=== PATIENT | female | born 1990 ===

== ENCOUNTER 2020-05-25 19:59 | Inpatient (IN) | payer OTHER ==
[2020-05-25] MEDS ORDERED: FAMOTIDINE 20 MG/2 ML INJ IV ONE (21:09)
[2020-05-25] MEDS ORDERED: METOCLOPRAMIDE 10 MG/2 ML INJ IV ONE (21:09)
[2020-05-25] MEDS ORDERED: BICITRA ORAL LIQD 30ML PO ONE (21:09)
[2020-05-25] MEDS ORDERED: LACTATED RINGERS 1,000 ML IV SCH (21:15)
[2020-05-25] MEDS ORDERED: OXYTOCIN DRIP 30 UNITS/500 ML BAG IV SCH (22:00)
[2020-05-25] MEDS ORDERED: diphenhydrAMINE 50 MG/ML VIAL IV PRN (22:31)
[2020-05-25] MEDS ORDERED: HYDROmorphone 1 MG/1 ML INJ IV PRN (22:31)
[2020-05-25] MEDS ORDERED: PROMETHAZINE 25 MG TAB PO PRN (22:31)
[2020-05-25] MEDS ORDERED: PROMETHAZINE 25 MG RECT SUPP PR PRN (22:31)
[2020-05-25] MEDS ORDERED: ONDANSETRON 4 MG/2 ML INJ IV PRN (22:31)
[2020-05-25] MEDS ORDERED: NALOXONE 0.4 MG/1 ML INJ IV PRN (22:31)
[2020-05-25] MEDS ORDERED: NalbUPHINE 10 MG/1 ML INJ IV PRN (22:31)
--- NOTE | 2020-05-25 22:31 | Anesthesia Consultation ---
Anesthesia Consult and Med Hx Date of service: 05/25/20 - Airway Anesthetic Teeth Evaluation: Good ROM Head & Neck: Adequate Mental/Hyoid Distance: Adequate Mallampati Class: Class II Intubation Access Assessment: Probably Good - Pulmonary Exam CTA: Yes - Cardiac Exam Cardiac Exam: RRR - Pre-Operative Health Status ASA Pre-Surgery Classification: ASA2, Emergency Proposed Anesthetic Plan: Spinal - Pulmonary Hx Smoking: No Hx Sleep Apnea: No - Cardiovascular System Hx Hypertension: No Hx Heart Attack/AMI: No Hx Angina: No - Gastrointestinal Hx Gastroesophageal Reflux Disease: No - Endocrine Hx Insulin Dependent Diabetes: No Hx Non-Insulin Dependent Diabetes: No - Other Systems Hx Alcohol Use: No
--- NOTE | 2020-05-25 22:31 | Anesthesia Day of Surgery ---
Anesthesia Day of Surgery - Day of Surgery Patient Examined: Yes Patient H&P Reviewed: Yes Patient is NPO: Yes Beta Blockers: No Cardiac Clearance: No Pulmonary Clearance: No William's Test: N/A
[2020-05-25 22:34] LABS: Basophils % (Auto) 0.2 % (0.0-1.8); Eosinophils % (Auto) 0.2 % (0.0-4.3); Hematocrit 36.4 % (30.3-42.9); Hemoglobin 12.4 gm/dl (10.1-14.3); Lymphocytes # (Auto) 2.4 K/mm3 (1.2-5.4); Lymphocytes % (Auto) 21.1 % (13.4-35.0); Mean Corpuscular HGB Conc 34 % (30-34); Mean Corpuscular Volume 87 fl (79-97); Monocytes # (Auto) 0.6 K/mm3 (0.0-0.8); Monocytes % (Auto) 5.7 % (0.0-7.3); Platelet Count 230 K/mm3 (140-440); Red Blood Count 4.17 M/mm3 (3.65-5.03); Red Cell Distribution Width 14.1 % (13.2-15.2)
--- NOTE | 2020-05-25 22:46 | History and Physical Report ---
History of Present Illness Date of examination: 05/25/20 Date of admission: 05/25/20 21:12 Chief complaint: pt c/o contraction and leakage of fluid this evening History of present illness: at 39.3wks by EDC per pt report and pt has repeat c/section scheduled f or 05/26/20 here at [facility]. Pt c/o leakage of fluid at 19:30 today and also feeling ctx that are painful. pt admits to movement, denies vaginal bleeding and denies headache. at [facility], pt states. Past History Past Surgical History: section (done in [place] and undocumented scar) Family/Genetic History: none Social history: no significant social history - Obstetrical History : 2 Para: 1 Number of Living Children: 1 Medications and Allergies Allergies Allergy/AdvReac Type Severity Reaction Status Date / Time No Known Allergies Allergy Verified 05/25/20 21:13 Active Meds: Active Medications Diphenhydramine HCl (Diphenhydramine 50 Mg/Ml Vial) 12.5 mg IV Q2H PRN PRN Reason: Itching Hydromorphone HCl (Hydromorphone 1 Mg/1 Ml Inj) 0.5 mg IV Q4H PRN PRN Reason: breakthrough pain > 7/10 Lactated Ringer's (Lactated Ringers) 1,000 mls @ 2,250 mls/hr IV PREOP JONO Stop: 05/26/20 21:42 Last Admin: 05/25/20 21:25 Dose: 2,250 mls/hr Documented by: Oxytocin/Sodium Chloride (Pitocin/Ns 30 Unit/500ml) 30 units in 500 mls @ 0 mls/hr IV TITR JONO; Protocol Last Admin: 05/25/20 21:58 Dose: 40 ml/hr, 40 mls/hr Documented by: Nalbuphine HCl (Nalbuphine 10 Mg/1 Ml Inj) 2.5 mg IV Q2H PRN PRN Reason: Itching Naloxone HCl (Naloxone 0.4 Mg/1 Ml Inj) 0.2 mg IV Q2MIN PRN PRN Reason: Res Rate </= 8 or 02 SAT < 92% Ondansetron HCl (Ondansetron 4 Mg/2 Ml Inj) 4 mg IV Q8H PRN PRN Reason: Nausea And Vomiting Promethazine HCl (Promethazine 25 Mg Tab) 25 mg PO Q6H PRN PRN Reason: Nausea And Vomiting Promethazine HCl (Promethazine 25 Mg Rect Supp) 25 mg OK Q6H PRN PRN Reason: Nausea And Vomiting Review of Systems All systems: negative (leakage of fluid) - Vital Signs Vital signs: Vital Signs Pulse Pulse Ox 76 98 05/25/20 20:28 05/25/20 20:28 Temp Pulse Resp BP Pulse Ox 98.5 F 98 H 18 112/67 98 05/25/20 20:29 05/25/20 22:22 05/25/20 20:29 05/25/20 20:29 05/25/20 22:22 - Physical Exam Breasts: Positive: deferred Cardiovascular: Regular rate Abdomen: Positive: other (non-tender gravid) Vagina: Positive: other (grossly ruptured noticed later and indeterminate nitrazine initially per nurse report) Uterus: Positive: enlarged Extremities: Positive: normal - Obstetrical FHR: category 1 Uterine Contraction Monitor Mode: External Cervical Dilatation: 4 (per triage nurse) Cervical Effacement Percentage: 70 station: 0 Uterine Contraction Pattern: Regular Uterine Contraction Intensity: Moderate Results Result Diagrams: 05/25/20 21:25 Abnormal lab results 05/25/20 Range/Units 21:25 WBC 11.3 H (4.5-11.0) K/mm3 Seg Neutrophils % 72.8 H (40.0-70.0) % Seg Neutrophils # 8.2 H (1.8-7.7) K/mm3 All other labs normal. Assessment and Plan at 39.3 with previous undocumented scar, now in labor and SROM, unknown GBS 1. Admit for repeat section 2. Obtain records MATTHEW and office personnel contacted 3. Consents signed 4. NICU and Anesthesia notified carpet sewing machine operator used by nurse for translation.
[2020-05-25] MEDS ORDERED: BUPIVACAINE /DEX-WATER 0.75% (2 ML) AMPULE INFILTRATI ONE (23:07)
[2020-05-25] MEDS ORDERED: PHENYLEPHRINE/NS 1,000 MCG/10 ML SYRINGE (OR USE) IV ONE (23:07)
[2020-05-25] MEDS ORDERED: ONDANSETRON 4 MG/2 ML INJ ONE (23:07)
[2020-05-25] MEDS ORDERED: KETOROLAC 30 MG/1 ML INJ ONE (23:07)
[2020-05-25] MEDS ORDERED: SODIUM CHLORIDE 0.9% IRR 1,500 ML BOTTLE IR ONE (23:23)
[2020-05-25] MEDS ORDERED: WATER FOR IRRIG STERILE 1,500 ML BOTTLE IR ONE (23:23)
[2020-05-26] MEDS ORDERED: SIMETHICONE 80 MG CHEW TAB PO PRN (00:46)
[2020-05-26] MEDS ORDERED: KETOROLAC 30 MG/1 ML INJ IV PRN (00:46)
[2020-05-26] MEDS ORDERED: HYDROcodone/ACETAMINOPHEN 5-325 MG TAB PO PRN (00:46)
[2020-05-26] MEDS ORDERED: NALOXONE 0.4 MG/1 ML INJ IV PRN (00:46)
[2020-05-26] MEDS ORDERED: WITCH HAZEL/ GLYCERIN PAD TP PRN (00:46)
[2020-05-26] MEDS ORDERED: MORPHINE 4 MG/1 ML INJ IV PRN (00:46)
[2020-05-26] MEDS ORDERED: ONDANSETRON 4 MG/2 ML INJ IV PRN (00:46)
[2020-05-26] MEDS ORDERED: LANOLIN/ZINC/DIMETHICONE (LANSINOH) 7 GM TP PRN (00:46)
[2020-05-26] MEDS ORDERED: IBUPROFEN 800 MG TAB PO PRN (00:46)
[2020-05-26] MEDS ORDERED: MAGNESIUM HYDROXIDE (MOM) ORAL LIQD UDC PO PRN (00:46)
--- NOTE | 2020-05-26 00:58 | Procedure Note ---
OB Delivery Note - Delivery Date of Delivery: 05/26/20 Surgeon: GAYLA BAUMANN (Asst Lenora Williamson) Estimated blood loss: other (700cc) - Section Preop diagnosis: repeat , other (undocumented scar and in active labor) Postop diagnosis: same (partial abruption) section procedure: section, repeat low transverse Disposition: floor Complications: none Narrative: Date: 05/26/20 Surgeon: Gayla Baumann MD Preop Dx: Term IUP at 39.3wks, previous section with undocumented scar Postop Dx: same and partial abruption Procedure : Repeat Low transverse section Anesthesia: Spinal Intake: 1400cc crystalloids Output: 300cc clear urine EBL: 700cc After the risks, benefits and alternatives of procedure discussed, patient signed consents and was taken to the operating room. Pt was given spinal anesthesia. After same was adequate, patient was prepped and draped in the usual sterile fashion. Dial catheter in place and draining clear urine. Pt was given prophylactic antibiotic per protocol and time out was done Pfannenstiel skin incision was made and taken sharply to the fascia and the incision extended using electrocautery. Superior edge of the fascia was grasped with may clamps and the rectus muscle using blunt dissection and also using electrocautery. Lower portion of the fascia also sharply. Rectus muscle in the midline and Peritoneal cavity entered bluntly and extended with good visualization of the bladder. The bladder flap was created sharply using metzenbaum scissors. Lower uterine segment then entered transversely and amniotic sac entered using allys clamps. Uterine incision extended using bandage scissors. delivered, bulb suctioned, cord clamped and baby handed to waiting pediatricians. Placenta then delivered completely and uterine cavity cleared of all clots and debri. The uterus was not exteriorized and closed in 2 layers using 0-vicryl suture in a running locked fashion and then an additional layer of imbrication suture. Excellent hemostasis noted. The gutters were cleared of clots and debris and anterior peritoneum closed using 3-0 vicryl suture and rectus muscle reapproximated using [o-vicryl] suture. Rectus fascia closed with [0-vicryl] suture and subcutaneous tissue copiously irrigated with normal saline and re-approximated using 3-0 vicryl suture. Excellent hemostasis remains. The skin was closed with 3-0 monocryl suture and steristrips placed with pressure dressing. Sponge, lap, instrument and needle counts x2 were normal. Patient tolerated the procedure well and was taken to recovery room stable. Findings: Viable male , APGARS 8/9 and weight 3439g. Uterus deviates to right side, normal tubes and ovaries. - Infant A at 1 minute: 8 at 5 minutes: 9 Gender: Male (Baby delivered on 05/25/20 at 23:46; wt 3439g)
[2020-05-26] MEDS ORDERED: OXYTOCIN DRIP 30 UNITS/500 ML BAG IV SCH (01:00)
--- NOTE | 2020-05-26 01:30 | Progress Note ---
Spinal Anesthesia Block - Spinal Anesthesia Block Start Time: 22:50 Stop Time: 23:00 Performed by:: BRE MORRISON Procedure: Spinal anesthesia block is being performed for [C/S]. H&P, labs have been reviewed. Patient's questions and concerns have been answered. Informed consent has been performed. Timeout has was performed. Patient in sitting position on side of bed. Sterile prep and drape was performed. 3 mL 1% lidocaine skin wheal at L [3]-L [4]. Needle introducer advanced. 25-gauge spinal needle advanced, [+] CSF [-] blood. [Marcaine 9mg and Precedex 5mcg] Spinal dose was given. All needles removed. Patient tolerated procedure well.
[2020-05-26] MEDS ORDERED: miSOPROStol 200 MCG TAB PR ONE (01:38)
[2020-05-26] MEDS ORDERED: miSOPROStol 200 MCG TAB ONE (01:40)
--- NOTE | 2020-05-26 10:53 | Post Anesthesia Evaluation ---
- Post Anesthesia Evaluation Patient Participated: Yes Airway Patent: Yes Stable Respiratory Function: Yes Nausea/Vomiting: No Temp > 96.8F: Yes Pain Manageable: Yes Adequeate Hydration: Yes Anesthesia Complications: No Block Receding Appropriately: Yes Patient on Ventilator: No
[2020-05-26] MEDS: oxyCODONE /ACETAMINOPHEN 5-325MG TAB PO PRN (16:21)
[2020-05-26 19:54] LABS: Hematocrit 32.7 % (30.3-42.9); Hemoglobin 11.3 gm/dl (10.1-14.3)
[2020-05-27] MEDS: oxyCODONE /ACETAMINOPHEN 5-325MG TAB PO PRN ×2 (03:52→11:05)
--- NOTE | 2020-05-27 10:57 | Progress Note ---
Assessment and Plan A: POD #2 Stable P: Follow Routine Orders Depo Provera 150mg IM prior to discharge D/C home today per patient request RTO in One Week Subjective - Subjective Date of service: 05/27/20 Patient reports: appetite normal, voiding normally, pain well controlled, flatus, bowel movement, ambulating normally [place]: doing well, bottle feeding Objective - Vital Signs Latest vital signs: Vital Signs Temp Pulse Resp BP BP Pulse Ox 05/27/20 08:40 97.6 F 65 18 114/65 98 05/27/20 03:52 20 05/27/20 00:18 97.5 F L 60 20 96/59 97 05/26/20 20:55 20 05/26/20 20:47 98.6 F 76 18 104/65 97 05/26/20 15:10 98.4 F 71 20 105/65 05/26/20 12:58 98.6 F 75 20 100/64 Intake and Output 05/26/20 05/27/20 05/27/20 22:59 06:59 14:59 Intake Total 560 240 240 Output Total 1800 Balance -1240 240 240 Intake: Oral 440 240 240 Intake, Free Water 120 Output: Urine 1800 Void 1800 Other: Total, Intake Amount 120 240 240 Total, Output Amount 900 # Voids Void 2 1 - Exam Breasts: Present: normal Cardiovascular: Present: Regular rate Lungs: Present: Clear to auscultation, Normal air movement Abdomen: Present: normal appearance, soft, normal bowel sounds Uterus: Present: normal, firm, fundal height below umbilicus Extremities: Present: normal Incision: Present: normal, dry, intact
--- NOTE | 2020-05-27 10:58 | Discharge Summary ---
Providers - Providers Date of Admission: 05/25/20 21:12 Date of discharge: 05/27/20 Attending physician: GERMAN BAUMANN 05/26/20 00:46 Consult to Harbormaster [CONS] Routine Reason For Exam: Primary care physician: GERMAN BAUMANN Hospitalization Reason for admission: section Delivery: Procedure: repeat low transverse Episiotomy: none Laceration: none Incision: normal, dry, intact Other procedures: none complications: none Discharge diagnosis: IUP at term delivered Condition at discharge: Good Disposition: DC-01 TO HOME OR SELFCARE Plan - Discharge Medications Prescriptions: Ibuprofen [Motrin 800 MG tab] 800 mg PO Q8HR PRN #30 tablet PRN Reason: Pain, Mild (1-3) oxyCODONE /ACETAMINOPHEN [Percocet 5/325] 1 tab PO Q6HR PRN #30 tablet PRN Reason: Pain, Moderate (4-6) - Provider Discharge Summary Activity: routine, no sex for 6 weeks, no heavy lifting 4 weeks, no strenuous exercise Diet: routine Instructions: routine Additional instructions: [] Smoking cessation referral if applicable(refer to patient education folder for contact #) [] Refer to [facility]'s [facility] Booklet Call your doctor immediately for: * Fever > 100.5 * Heavy vaginal bleeding ( >1 pad per hour) * Severe persistent headache * Shortness of breath * Reddened, hot, painful area to leg or breast * Drainage or odor from incision. * Keep incision clean and dry at all times and follow doctor's instructions regarding bathing/showering - Follow up plan Follow up: GERMAN BAUMANN MD [Primary Care Provider] - 7 Days
[2020-05-27] MEDS ORDERED: medroxyPROGESTERone ACETATE 150 MG/ML SYRINGE IM SCH (11:00)
[2020-05-27 12:46] VITALS: BP 95/58
== END 2020-05-27 15:03 | disposition home or self-care (01) | DRG 786 ==
LOC: TRG 19:59 → APU 21:12 → OB 05-26 02:14
PROVIDERS: ADMIT Obstetrics & Gynecology; ATTEND Obstetrics & Gynecology
PROC: 10D00Z1 Extraction of Products of Conception, Low, Open Approach (ICD-10-PCS; principal; 2020-05-26)
DX: O34.211 Maternal care for low transverse scar from previous cesarean delivery (principal); O45.93 Premature separation of placenta, unspecified, third trimester; Z20.822 Contact with and (suspected) exposure to COVID-19; N85.8 Other specified noninflammatory disorders of uterus; Z3A.39 39 weeks gestation of pregnancy; Z37.0 Single live birth
CPT/HCPCS: 36415; 59025; 85014; 85018; 85025; 86592; 86850; 86900; 86901; G0378; J1050; J1885; J2270; J2370; J2405; J2590; J2765; J3490; J7120; U0003